=== PATIENT | male | born 1990 | race Caucasian/White ===

== ENCOUNTER → 2020-02-08 | Day surgery (SDC) | payer OTHER ==
--- NOTE | 2020-02-07 09:10 | Pre Op History & Physical ---
DATE OF SURGERY: February 08, 2020. CHIEF COMPLAINT: Nasal obstruction, epistaxis, and chronic sinusitis. HISTORY OF PRESENT ILLNESS: This 29-year-old male has a 5-year history of epistaxis 2 to 3 times a day for ongoing basis. The patient bleeding mainly is on the right side. He denies much headaches. He has normal sense of smell. The patient has no trauma to the nose. He has postnasal drip. He had cauterization of the nose at age 7. The patient has no history of blood dyscrasia. He has been treated with antibiotics and he had cauterization of the nose in the office by myself with no improvement of the condition. A CT scan of the paranasal sinuses showed the patient has a deviated nasal septum mainly to the left side about 30% with a left maxillary sinusitis. REVIEW OF SYSTEMS: System review showed no recent cardiovascular, respiratory, GI problem. PAST MEDICAL HISTORY: The patient has a history of hypertension. PAST SURGICAL HISTORY: He has previous tonsillectomy and ankle surgery. ALLERGIES: HE HAS NO KNOWN ALLERGY TO MEDICATION. MEDICATION: He is on amlodipine and Chantix. SOCIAL HISTORY: The patient smokes about a pack a day. He is a social drinker. FAMILY HISTORY: Noncontributory. PHYSICAL EXAMINATION: VITAL SIGNS: The patient's vital signs were within normal limits. HEENT: Ear exam showed normal tympanic membrane bilaterally. Nasal exam showed deviated nasal septum to the left side about 30%. No active bleeding was noted. Oropharynx and oral cavity show no tonsils and Mallampati level 2. NECK: Showed no lymph node or thyroid palpable. CHEST: Showed good air entry bilaterally. CARDIOVASCULAR: Showed S1, S2. No murmur noted. ASSESSMENT AND PLAN: Mr. Marrero has nasal obstruction, chronic sinusitis, epistaxis, which has been resistant to conservative therapy. Suggested treatment is endoscopic sinus surgery, septoplasty, and other necessary procedure. Complication of procedure includes but not limited to bleeding, infection, CSF leak, blindness, double vision, meningitis, septal perforation, septal hematoma, persistent nasal obstruction, persistent nasal crusting, nasal deformity, persistent recurrence of sinus problem and persistent recurrence of epistaxis. Alternatives will be continue observation, continue antibiotic therapy, topical nasal steroid therapy, systemic steroid therapy, and repeat cauterization of the Little's area. The patient and his have elected to undergo surgical procedure. MD DIVINA Turpin/LEONA /[id number] cc:
[~2020-02-08] MED LIST: AMLODIPINE BESY10 MG PO; CHANTIX1 MG PO; DEXAMETHASONE SOD PHOS INJ 4 MG/ML VIAL ONE; EPINEPHRINE HCL 1:1000 1ML 1 MG/ML AMP ONE; FENTANYL CITRATE/PF 100MCG/2 ML INJ ONE; LIDOCAINE 1% W/EPINEPHRINE 20 ML VIAL ONE; LIDOCAINE HCL 2% JELLY 5 ML TUBE ONE; LIDOCAINE HCL 2% LOCAL INJ 5 ML SDV VIAL INJ ONE; MIDAZOLAM HCL 2 MG/2 ML VIAL ONE; MULTI-VITAMIN1 EACH PO; ONDANSETRON HCL INJ 2MG/ML 2ML 2 MG/ML VIAL ONE; PROPOFOL IV EMULSION 10 MG/ML 20 ML VIAL ONE; ROCURONIUM BROMIDE 10 MG/ML 5ML VIAL ONE; SEVOFLURANE INHAL SOLN 250 ML PEN BTL ONE
--- OUTSIDE RECORDS SUMMARY | 2020-02-08 06:26 | XMS REPORT ---
Author [facility] Address Unknown Phone Unavailable Care Team Providers Care Activities Volunteer Name Role Phone Yassine Jenkins Unavailable Unavailable Problems This patient has no known problems. Allergies, Adverse Reactions, Alerts This patient has no known allergies or adverse reactions. Medications This patient has no known medications. Results Test Description Test Time Test Comments Text Results Atomic Results Result Comments Sinus Wo Cont 2020-01-26 11:50:[address] [address] RADIOLOGY SERVICES REPORT Name: WILL HAYDEN Acct Number: [id number] :1990 Age:29 Sex:M Ord Phys: Yassine Jenkins MD Unit Number: [id number] [facility] Dr: Status: REG REF RAD Exam Date: 01/26/20 EXAM DESCRIPTION: CTSinus Wo Cont01/26/2020 11:25 am CLINICAL HISTORY: Sinus congestion/ICDJ32.0 COMPARISON: None. TECHNIQUE: Computed axial tomography of the sinuses were obtained with coronal and sagittal reconstruction. All CT scans are performed using dose optimization technique as appropriate and may include automated exposure control or mA/KV adjustment according to patient size. FINDINGS: Small mucous retention cyst left maxillary sinus. The right maxillary, Ethmoid, frontal and sphenoid sinuses are clear. The ostiomeatal complexes are patent. Mild deviation the nasal septum. Doris bullosa The mastoids are clear. IMPRESSION: 1. Mild chronic left maxillary sinusitis 2. Patent ostiomeatal complexes. Signed By: Levi Umaña MD Signed AT: 01/26/20 [id number]
--- NOTE | 2020-02-08 10:35 | Operative Report ---
DATE OF PROCEDURE: 02/08/2020 SURGEON: Yassine Jenkins MD CHIEF COMPLAINT: Chronic sinusitis, nasal obstruction, epistaxis. POSTOPERATIVE DIAGNOSES: Chronic sinusitis, nasal obstruction, epistaxis. OPERATIVE PROCEDURES: Examination under anesthesia, left maxillary sinus antrostomy, left resection of tissue maxillary antrum, septoplasty. ANESTHESIA: Anesthesiology Group. INDICATIONS: This 29-year-old male has history of right epistaxis with nasal obstruction, postnasal drip discharge from his nose. He has normal sense of smell. The patient has no trauma to the nose. His condition has been treated with topical nasal steroid, decongestant, antibiotics with no improvement. The patient also has a cauterization of the right septum in the Little's area in the office with no improvement of the epistaxis. On examination, he was noted to have a deviated nasal septum to the left side about 30% with a curvature in the right Little's area, where the bleeding area is. CT scan of paranasal sinuses done before surgery showed the patient has chronic sinusitis with involvement of the left maxillary antrum and confirmed the left the nasal septum. It was decided that endoscopic sinus surgery, septoplasty, examination under anesthesia, and other necessary procedure will be beneficial for him. DESCRIPTION OF PROCEDURE: The patient was taken to the operating room put under general anesthesia, endotracheally intubated. The nose was injected with 1% Xylocaine with 1:100,000 epinephrine for hemostasis. Epinephrine-soaked pledget was inserted in the nose and subsequently removed. Using the 0-degree endoscope, the nasal cavity both the right side and left side was examined, no obvious bleeding area was noted. Care was taken especially the look at the superior portion of the septum on both sides and also the posterior nasal cavity to see of any bleeding area occur and these were all negative. Care was taken also to look at the area, where the internal maxillary artery distribution. Again, no obvious bleeding area. The sign of bleeding was noted. The left maxillary sinus antrostomy was undertaken. The left middle turbinate was medialized. Using a curved probe, the natural ostium of maxillary sinus was entered, this was enlarged anteriorly and posteriorly using a backbiter and Thru-Cut forceps respectively. The inflamed tissue and maxillary antrum were dissected using the upbiting Shane-Cut forceps. The septoplasty was performed. A hemitransfixion incision was done on the left side. Mucoperichondrial flap was elevated on the left. The bony cartilaginous junction was encountered and this was . Perpendicular plate of the ethmoid was transected, this was removed along with the vomer. The septal spur cartilaginous portion removed using a Richmond elevator and bony spur using a 4 mm straight chisel. The quadrangular cartilage of the being freed from posterior inferior constraint was a bit able to swing back in the midline. The hemitransfixion incision was closed using 4-0 chromic suture in interrupted fashion. Septal whipstitch was done using 4-0 plain gut suture to reapproximate the mucoperichondrial flap and prevent septal hematoma formation. NasoPore was inserted into the middle meatal area on the left side to prevent synechiae formation and for hemostasis. The patient tolerated the above procedure well with estimated blood loss about 10 to 15 mL. He was given 20 mg of Decadron intraoperatively. The patient was able to be transferred to recovery room in stable condition. MD DIVINA Turpin/MODL /[id number]
[2020-02-08] MEDS: ACETAMINOPHEN/CODEINE 300MG - 30MG TAB ONE (10:37)
[2020-02-08 10:45] VITALS: BP 133/96
--- NOTE | 2020-02-09 03:44 | Operative Report ---
DATE OF PROCEDURE: 02/08/2020 SURGEON: Yassine Jenkins MD CHIEF COMPLAINT: Chronic sinusitis, nasal obstruction, epistaxis on the right side. POSTOPERATIVE DIAGNOSES: Chronic sinusitis, nasal obstruction, epistaxis on the right side. OPERATIVE PROCEDURE: Septoplasty, left maxillary sinus antrostomy, left resection of tissue maxillary antrum. ANESTHESIA: Anesthesiology Group. INDICATIONS: This 29-year-old male has history of nasal obstruction, postnasal drip discharge from his nose. He has normal sense of smell. The patient also has epistaxis, mainly on the right side. The patient's condition has been treated with topical nasal steroid, decongestant, antibiotics with no improvement. He also has cauterization of the right septum, but no improvement of the epistaxis. On examination, he was noted to have a deviated nasal septum to the left side about 30% with a curvature of the septum to the right where the Little's area is and that is where the patient's bleeding area seems to be. A CT scan of paranasal sinuses done before surgery showed the patient has chronic sinusitis. DICTATION ENDS HERE Yassine Jenkins MD DKH/MODL /[id number]
== END | disposition home or self-care (01) ==
LOC: OR 06:17
PROVIDERS: ATTEND Otolaryngology Otolaryngology/Facial Plastic Surgery
DX: J32.0 Chronic maxillary sinusitis (principal); J34.89 Other specified disorders of nose and nasal sinuses; R04.0 Epistaxis; J34.2 Deviated nasal septum; I10 Essential (primary) hypertension; J45.909 Unspecified asthma, uncomplicated; F17.210 Nicotine dependence, cigarettes, uncomplicated
CPT/HCPCS: 30520; 31267; 88300; 88305; 93005; J0171; J1100; J2001 ×2; J2250; J2405; J2704; J3010; 88304